=== PATIENT | female | born 1995 | race Caucasian/White ===

== ENCOUNTER 2017-10-19 20:19 | Emergency (ER) | payer BC ==
[2017-10-19] MEDS ORDERED: Ondansetron 4 MG/2 ML SDV IVPUSH ONE (20:53)
[2017-10-19] MEDS ORDERED: Acetaminophen 500 MG Tab PO ONE (20:53)
[2017-10-19] MEDS ORDERED: Sodium Chloride 0.9% 1,000 ML IV ONE (20:53)
--- NOTE | 2017-10-19 20:57 | EDM.PDOC ---
ED HPI GENERAL MEDICAL PROBLEM - General Chief Complaint: Headache Stated Complaint: MIGRAINE Time Seen by Provider: 10/19/17 20:37 - History of Present Illness INITIAL COMMENTS - FREE TEXT/NARRATIVE: HISTORY AND PHYSICAL: History of present illness: Patient is a 21-year-old female currently who presents with concern of headache patient has had headaches in the past she feels this may be a migraine there is a family history of migraines patient does not carry a formal diagnosis has been no trauma been mild nausea equivocal photophobia no other neurological signs or symptoms Review of systems: As per history of present illness and below otherwise all systems reviewed and negative. Past medical history: As per history of present illness and as reviewed below otherwise noncontributory. Surgical history: As per history of present illness and as reviewed below otherwise noncontributory. Social history: No reported history of drug or alcohol abuse. Family history: As per history of present illness and as reviewed below otherwise noncontributory. Physical exam: HEENT: Atraumatic, normocephalic, pupils reactive, negative for conjunctival pallor or scleral icterus, mucous membranes moist, throat clear, neck supple, nontender, trachea midline. Lungs: Clear to auscultation, breath sounds equal bilaterally, chest nontender. Heart: S1S2, regular, negative for clicks, rubs, or JVD. Abdomen: Soft, nondistended, nontender. Negative for masses or hepatosplenomegaly. Negative for costovertebral tenderness. Pelvis: Stable nontender. Genitourinary: Deferred. Rectal: Deferred. Extremities: Atraumatic, negative for cords or calf pain. Neurovascular unremarkable. Neuro: Awake, alert, oriented. Cranial nerves II through XII unremarkable. Cerebellum unremarkable. Motor and sensory unremarkable throughout. Exam nonfocal. Diagnostics: None Therapeutics: Normal saline 1 L bolus Toradol 1 g by mouth Zofran 4 mg IV Impression: #1 cephalgia #2 Definitive disposition and diagnosis as appropriate pending reevaluation and review of above. headache Pain Score (Numeric/FACES): 9 - Related Data Allergies Allergy/AdvReac Type Severity Reaction Status Date / Time amoxicillin [From Augmentin] Allergy Airway Verified 10/19/17 20:32 Tightness clavulanic acid Allergy Airway Verified 10/19/17 20:32 [From Augmentin] Tightness Home Meds: Home Meds Acetaminophen [Tylenol] 325 mg PO Q4H PRN 10/19/17 [History] Docusate Sodium [Colace] 100 mg PO 10/19/17 [History] Metoclopramide HCl 10 mg PO DAILY 10/19/17 [History] Vit No.130/Iron/FA [ Vitamins] 1 each PO 10/19/17 [History] Past Medical History - Past Health History Medical/Surgical History: Denies Medical/Surgical History HEENT History: Reports: None Cardiovascular History: Reports: None Respiratory History: Reports: None Gastrointestinal History: Reports: None Genitourinary History: Reports: None 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: Musculoskeletal History: Reports: Other (See Below) Other Musculoskeletal History: spinal stenosis Neurological History: Reports: None Psychiatric History: Reports: None Endocrine/Metabolic History: Reports: None Dermatologic History: Reports: None - Infectious Disease History Infectious Disease History: Reports: None - Past Surgical History Cardiovascular Surgical History: Reports: None Female Surgical History: Reports: None Social & Family History - Family History Family Medical History: Noncontributory - Tobacco Use Smoking Status *Q: Never Smoker - Recreational Drug Use Recreational Drug Use: No ED ROS GENERAL - Review of Systems Review Of Systems: ROS reveals no pertinent complaints other than HPI. ED EXAM, GENERAL - Physical Exam Exam: See Below (See dictation) Course - Vital Signs Last Recorded V/S: Last Vital Signs Temp 36.7 C 10/19/17 20:35 Pulse 91 10/19/17 20:35 Resp 14 10/19/17 20:35 BP 134/72 10/19/17 20:35 Pulse Ox 98 10/19/17 20:35 - Orders/Labs/Meds Orders: Active Orders 24 hr Category Date Time Status Sodium Chloride 0.9% [Normal Saline] 1,000 ml Med 10/19/17 20:53 Active IV .BOLUS Medication Orders Sodium Chloride (Normal Saline) 1,000 mls @ 999 mls/hr IV .BOLUS ONE Stop: 10/19/17 21:53 Last Admin: 10/19/17 21:00 Dose: 999 mls/hr Meds: Medications Generic Name Dose Route Start Last Admin Trade Name Freq PRN Reason Stop Dose Admin Sodium Chloride 1,000 mls @ 999 mls/hr 10/19/17 20:53 10/19/17 21:00 Normal Saline IV 10/19/17 21:53 999 mls/hr .BOLUS ONE Administration Discontinued Medications Generic Name Dose Route Start Last Admin Trade Name Roberto PRN Reason Stop Dose Admin Acetaminophen 1,000 mg 10/19/17 20:53 10/19/17 21:08 Tylenol Extra Strength PO 10/19/17 20:54 1,000 mg ONETIME ONE Administration Diphenhydramine HCl 50 mg 10/19/17 21:30 10/19/17 21:39 Benadryl IVPUSH 10/19/17 21:31 50 mg ONETIME ONE Administration Metoclopramide HCl 10 mg 10/19/17 21:30 10/19/17 21:38 Reglan IV 10/19/17 21:31 10 mg ONETIME ONE Administration Ondansetron HCl 4 mg 10/19/17 20:53 10/19/17 21:08 Zofran IVPUSH 10/19/17 20:54 4 mg ONETIME ONE Administration Departure - Departure Time of Disposition: 21:53 Disposition: Home, Self-Care 01 Condition: Good Clinical Impression: , Cephalgia - Discharge Information Referrals: Hunter Hassan MD [Primary Care Provider] - Forms: ED Department Discharge Additional Instructions: The following information is given to patients seen in the emergency department who are being discharged to home. This information is to outline your options for follow-up care. We provide all patients seen in our emergency department with a follow-up referral. The need for follow-up, as well as the timing and circumstances, are variable depending upon the specifics of your emergency department visit. If you don't have a primary care physician on staff, we will provide you with a referral. We always advise you to contact your personal physician following an emergency department visit to inform them of the circumstance of the visit and for follow-up with them and/or the need for any referrals to a consulting specialist. The emergency department will also refer you to a specialist when appropriate. This referral assures that you have the opportunity for followup care with a specialist. All of these measure are taken in an effort to provide you with optimal care, which includes your followup. Under all circumstances we always encourage you to contact your private physician who remains a resource for coordinating your care. When calling for followup care, please make the office aware that this follow-up is from your recent emergency room visit. If for any reason you are refused follow-up, please contact the [facility] emergency department at and asked to speak to the emergency department charge nurse. 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
[2017-10-19] MEDS ORDERED: diphenhydrAMINE 50 MG/ML SDV IVPUSH ONE (21:30)
[2017-10-19] MEDS ORDERED: Metoclopramide 10 MG/2 ML SDV IV ONE (21:30)
== END 2017-10-19 22:22 | disposition home or self-care (01) ==
LOC: MW.ED 20:19
DX: O99.89 Other specified diseases and conditions complicating pregnancy, childbirth and the puerperium (principal); R51 Headache; Z88.1 Allergy status to other antibiotic agents; Z79.899 Other long term (current) drug therapy; Z3A.15 15 weeks gestation of pregnancy
CPT/HCPCS: 96361; 96374; 96375; 99283; A9270; J1200; J2405; J2765; J7040

== ENCOUNTER 2018-01-31 16:48 | Emergency (ER) | payer OTHER, BC ==
--- NOTE | 2018-01-31 17:19 | EDM.PDOC ---
ED HPI GENERAL MEDICAL PROBLEM - General Chief Complaint: ENT Problem Stated Complaint: PT HAS EAR INFECTION AND SORE THROAT Time Seen by Provider: 01/31/18 16:52 Source of Information: Reports: Patient History Limitations: Reports: No Limitations - History of Present Illness INITIAL COMMENTS - FREE TEXT/NARRATIVE: HISTORY AND PHYSICAL: History of present illness: Angela is a 22-year-old female, 32-weeks , here with complaint of sore throat and ear pain 3 days. She reports having a fever over the weekend, she's been taking Tylenol for this. She states she vomited once today. Denies any abdominal pain, pelvic pain, dysuria, vaginal discharge, vaginal bleeding.] Review of systems: As per history of present illness and below otherwise all systems reviewed and negative. Past medical history: As per history of present illness and as reviewed below otherwise noncontributory. Surgical history: Tonsillectomy Social history: No reported history of drug or alcohol abuse. Family history: As per history of present illness and as reviewed below otherwise noncontributory. Physical exam: HEENT: Atraumatic, normocephalic, pupils reactive, negative for conjunctival pallor or scleral icterus, mucous membranes moist, throat clear, neck supple, nontender, trachea midline. Lungs: Clear to auscultation, breath sounds equal bilaterally, chest nontender. Heart: S1S2, regular,no murmurs or extra heart sounds Abdomen: Obstetric. Nontender. Negative for masses or hepatosplenomegaly. Negative for costovertebral tenderness. Pelvis: Stable nontender. Genitourinary: Deferred. Rectal: Deferred. Extremities: Atraumatic. Neurovascular unremarkable. Neuro: Awake, alert, oriented. Cranial nerves II through XII unremarkable. Exam nonfocal. Notes: Diagnostics: [Rapid strep UA] Therapeutics: [Macrobid] Impression: [UTI Pharyngitis] Plan: [1. Take antibiotic as directed 2. Drink plenty of fluids ad take Tylenol as needed for pain and instructed 3. Follow-up with OB 4. Return to ED as needed as discussed] Definitive disposition and diagnosis as appropriate pending reevaluation and review of above. throat Pain Score (Numeric/FACES): 5 - Related Data Allergies Allergy/AdvReac Type Severity Reaction Status Date / Time amoxicillin [From Augmentin] Allergy Rash Verified 01/31/18 17:06 clavulanic acid Allergy Rash Verified 01/31/18 17:06 [From Augmentin] Home Meds: Home Meds Acetaminophen [Tylenol] 325 mg PO Q4H PRN 10/19/17 [History] Vit No.130/Iron/FA [ Vitamins] 1 each PO DAILY 10/19/17 [ History] Biotin 100 mg PO DAILY 01/04/18 [History] Ranitidine [Zantac] 75 mg PO DAILY PRN 01/04/18 [History] Docusate Sodium [Colace] 50 mg PO DAILY 01/31/18 [History] Past Medical History - Past Health History Medical/Surgical History: Denies Medical/Surgical History HEENT History: Reports: None Cardiovascular History: Reports: None Respiratory History: Reports: None Gastrointestinal History: Reports: None Genitourinary History: Reports: None [employer]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: Musculoskeletal History: Reports: Other (See Below) Other Musculoskeletal History: spinal stenosis Neurological History: Reports: None Psychiatric History: Reports: None Endocrine/Metabolic History: Reports: None Dermatologic History: Reports: None - Infectious Disease History Infectious Disease History: Reports: None - Past Surgical History HEENT Surgical History: Reports: Adenoidectomy, Tonsillectomy Cardiovascular Surgical History: Reports: None Female Surgical History: Reports: None Social & Family History - Family History Family Medical History: Noncontributory - Tobacco Use Smoking Status *Q: Never Smoker - Caffeine Use Caffeine Use: Reports: Coffee - Recreational Drug Use Recreational Drug Use: No ED ROS ENT - Review of Systems Review Of Systems: ROS reveals no pertinent complaints other than HPI. ED EXAM, ENT - Physical Exam Exam: See Below (See dictation) Course - Vital Signs Last Recorded V/S: Last Vital Signs Temp 37.6 C 01/31/18 17:03 Pulse 111 H 01/31/18 17:03 Resp 20 01/31/18 17:03 BP 135/75 01/31/18 17:03 Pulse Ox 97 01/31/18 17:03 - Orders/Labs/Meds Orders: Active Orders 24 hr Category Date Time Status CULTURE STREP A CONFIRMATION [RM] Stat Lab 01/31/18 17:10 Results STREP SCRN A RAPID W CULT CONF [RM] Stat Lab 01/31/18 17:10 Ordered UA W/MICROSCOPIC [URIN] Stat Lab 01/31/18 17:10 Ordered Labs: Laboratory Tests 01/31/18 Range/Units 17:10 Urine Color YELLOW Urine Appearance SLT CLOUDY Urine pH 6.0 (5.0-8.0) Ur Specific [place] 1.020 (1.001-1.035) Urine Protein NEGATIVE (NEGATIVE) mg/dL Urine Glucose (UA) NEGATIVE (NEGATIVE) mg/dL Urine Ketones NEGATIVE (NEGATIVE) mg/dL Urine Occult Blood NEGATIVE (NEGATIVE) Urine Nitrite NEGATIVE (NEGATIVE) Urine Bilirubin NEGATIVE (NEGATIVE) Urine Urobilinogen 0.2 (<2.0) EU/dL Ur Leukocyte Esterase SMALL (NEGATIVE) Urine RBC 0-3 (0-2/HPF) Urine WBC 7-10 (0-5/HPF) Ur Epithelial Cells FEW (NONE-FEW) Urine Bacteria 1+ H (NEGATIVE) Departure - Departure Time of Disposition: 18:18 Disposition: Home, Self-Care 01 Condition: Good Clinical Impression: UTI (urinary tract infection) - Discharge Information Instructions: Urinary Tract Infection, Adult, [id number] Referrals: PCP,None [Primary Care Provider] - Forms: ED Department Discharge Additional Instructions: The following information is given to patients seen in the emergency department who are being discharged to home. This information is to outline your options for follow-up care. We provide all patients seen in our emergency department with a follow-up referral. The need for follow-up, as well as the timing and circumstances, are variable depending upon the specifics of your emergency department visit. If you don't have a primary care physician on staff, we will provide you with a referral. We always advise you to contact your personal physician following an emergency department visit to inform them of the circumstance of the visit and for follow-up with them and/or the need for any referrals to a consulting specialist. The emergency department will also refer you to a specialist when appropriate. This referral assures that you have the opportunity for follow-up care with a specialist. All of these measure are taken in an effort to provide you with optimal care, which includes your follow-up. Under all circumstances we always encourage you to contact your private physician who remains a resource for coordinating your care. When calling for follow-up care, please make the office aware that this follow-up is from your recent emergency room visit. If for any reason you are refused follow-up, please contact the [facility] Emergency Department at and asked to speak to the emergency department charge nurse. 1. Take antibiotic as directed 2. Drink plenty of fluids ad take Tylenol as needed for pain and instructed 3. Follow-up with OB 4. Return to ED as needed as discussed - My Orders Last 24 Hours: My Active Orders 01/31/18 17:10 CULTURE STREP A CONFIRMATION [RM] Stat STREP SCRN A RAPID W CULT CONF [RM] Stat UA W/MICROSCOPIC [URIN] Stat - Assessment/Plan Last 24 Hours: My Active Orders 01/31/18 17:10 CULTURE STREP A CONFIRMATION [RM] Stat STREP SCRN A RAPID W CULT CONF [RM] Stat UA W/MICROSCOPIC [URIN] Stat
== END 2018-01-31 18:44 | disposition home or self-care (01) ==
LOC: MW.ED 16:48
DX: O99.513 Diseases of the respiratory system complicating pregnancy, third trimester (principal); J02.9 Acute pharyngitis, unspecified; O23.43 Unspecified infection of urinary tract in pregnancy, third trimester; Z88.1 Allergy status to other antibiotic agents; Z79.899 Other long term (current) drug therapy; Z3A.32 32 weeks gestation of pregnancy
CPT/HCPCS: 81001; 87081; 87086; 87880; 99283

== ENCOUNTER 2018-04-06 18:56 | Inpatient (IN) | payer OTHER, BC ==
[2018-04-06] MEDS ORDERED: Sodium Chloride 0.9% 10 ML Syringe FLUSH PRN (19:15)
[2018-04-06] MEDS ORDERED: Butorphanol 1 MG/ML SDV IVPUSH PRN (19:15)
[2018-04-06] MEDS ORDERED: Sodium Chloride 0.9% 2.5 ML Syringe FLUSH PRN (19:15)
[2018-04-06] MEDS ORDERED: Carboprost Tromethamine 250 MCG/1 ML Amp IM PRN (19:15)
[2018-04-06] MEDS ORDERED: Lidocaine 1% 50 ML MDV INJECT PRN (19:15)
[2018-04-06] MEDS ORDERED: Oxytocin/0.9 % Sodium Chloride 30 UNIT/500 ML BAG IV SCH ×2 (19:15→19:30)
[2018-04-06] MEDS ORDERED: Methylergonovine 0.2 MG/1 ML Amp IM PRN (19:15)
[2018-04-06] MEDS ORDERED: Water For Irrigation,Sterile 1,000 ML Container IRR PRN (19:15)
[2018-04-06] MEDS ORDERED: Nalbuphine 10 MG/1 ML Vial IVPUSH PRN (19:15)
[2018-04-06] MEDS ORDERED: Tranexamic Acid 1,000 MG in Sodium Chloride 0.9% 100 ML IV PRN (19:15)
[2018-04-06] MEDS ORDERED: Misoprostol 200 MCG Tab PO PRN (19:15)
[2018-04-06] MEDS ORDERED: Terbutaline 1 MG/ML SDV SUBCUT PRN (19:18)
[2018-04-06] MEDS ORDERED: Misoprostol 25 MCG (1/4 of 100 MCG) Tab VAG PRN (19:18)
[2018-04-06] MEDS ORDERED: Misoprostol 25 MCG (1/4 of 100 MCG) Tab VAG ONE (19:30)
[2018-04-06] MEDS ORDERED: Misoprostol 25 MCG (1/4 of 100 MCG) Tab VAG SCH (19:30)
[2018-04-07] MEDS: Lactated Ringers 1,000 ML IV SCH ×3 (00:19→12:14)
[2018-04-07] MEDS ORDERED: Ropivacaine 0.2% 2 MG/ML 20 ML SDV ONE (00:35)
[2018-04-07] MEDS ORDERED: Ropivacaine HCl/PF 100 ML ONE ×2 (00:35→09:47)
--- NOTE | 2018-04-07 01:23 | PCM.PREANE ---
Preanesthetic Assessment - Procedure Proposed Procedure: Labor Epidural - Anesthesia/Transfusion/Family Hx Anesthesia History: Prior Anesthesia Without Reaction Family History of Anesthesia Reaction: No Transfusion History: No Prior Transfusion(s) Intubation History: Unknown - Review of Systems General: No Symptoms Pulmonary: No Symptoms Cardiovascular: No Symptoms Gastrointestinal: No Symptoms Neurological: No Symptoms Other: Reports: None - Physical Assessment NPO Status Date: 04/07/18 NPO Status Time: 00:00 (sips/chips) Pulse: 86 Blood Pressure: 140/85 Height: 5 ft 9 in Weight: 179 lb ASA Class: 2 Mental Status: Alert & Oriented x3 Airway Class: Mallampati = 2 Dentition: Reports: Normal Dentition Thyro-Mental Finger Breadths: 3 Mouth Opening Finger Breadths: 3 ROM/Head Extension: Full Lungs: Clear to Auscultation, Normal Respiratory Effort Cardiovascular: Regular Rate, Regular Rhythm - Lab Values: Laboratory Last Values WBC 15.51 K/uL (4.0-11.0) H 04/06/18 19:37 RBC 4.41 M/uL (4.30-5.90) 04/06/18 19:37 Hgb 14.6 g/dL (12.0-16.0) 04/06/18 19:37 Hct 40.7 % (36.0-46.0) 04/06/18 19:37 MCV 92.3 fL (80.0-98.0) 04/06/18 19:37 MCH 33.1 pg (27.0-32.0) H 04/06/18 19:37 MCHC 35.9 g/dL (31.0-37.0) 04/06/18 19:37 RDW Std Deviation 43.7 fl (28.0-62.0) 04/06/18 19:37 RDW Coeff of Brayden 13 % (11.0-15.0) 04/06/18 19:37 Plt Count 220 K/uL (150-400) 04/06/18 19:37 MPV 10.50 fL (7.40-12.00) 04/06/18 19:37 Nucleated RBC % 0.0 /100WBC 04/06/18 19:37 Nucleated RBCs # 0 K/uL 04/06/18 19:37 Blood Type A POSITIVE 04/06/18 19:37 Antibody Screen NEGATIVE 04/06/18 19:37 - Allergies Allergies/Adverse Reactions: Allergies Allergy/AdvReac Type Severity Reaction Status Date / Time amoxicillin [From Augmentin] Allergy Rash Verified 01/31/18 17:06 clavulanic acid Allergy Rash Verified 01/31/18 17:06 [From Augmentin] - Blood Blood Available: No Product(s) Available: None - Anesthesia Plan Free Text/Narrative:: Labor Epidural - discussed waiting as pt is only having mild cramping, a prime and only dilated to 2cm. Pt wants to proceed with epidural at this time, but is willing to start on a reduced dose until in active labor. 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) Musculoskeletal History: Reports: Other (See Below) Other Musculoskeletal History: spinal stenosis - epidural steroids L4-S1 in 2016 - helped after one treatment Neurological History: Reports: None Psychiatric History: Reports: None Endocrine/Metabolic History: Reports: None Dermatologic History: Reports: None - Infectious Disease History Infectious Disease History: Reports: None - Past Surgical History HEENT Surgical History: Reports: Adenoidectomy, Tonsillectomy Cardiovascular Surgical History: Reports: None Female Surgical History: Reports: None - SUBSTANCE USE Smoking Status *Q: Never Smoker Second Hand Smoke Exposure: No Recreational Drug Use History: No - HOME MEDS Home Medications: Home Meds Acetaminophen [Tylenol] 325 mg PO Q4H PRN 10/19/17 [History] Vit No.130/Iron/FA [ Vitamins] 1 each PO DAILY 10/19/17 [ History] Biotin 100 mg PO DAILY 01/04/18 [History] Ranitidine [Zantac] 75 mg PO DAILY PRN 01/04/18 [History] Docusate Sodium [Colace] 50 mg PO DAILY 01/31/18 [History] - CURRENT (IN HOUSE) MEDS Current Meds: Current Medications Butorphanol Tartrate (Stadol) 1 mg IVPUSH Q1H PRN PRN Reason: Pain Carboprost Tromethamine (Hemabate Ds) 250 mcg IM ASDIRECTED PRN PRN Reason: Post Hemorrhage Lactated Ringer's (Ringers, Lactated) 1,000 mls @ 150 mls/hr IV ASDIRECTED RICK Last Admin: 04/07/18 00:19 Dose: 150 mls/hr Oxytocin/Sodium Chloride (Oxytocin 30 Unit/500 Ml-Ns) 30 unit in 500 mls @ 999 mls/hr IV TITRATE RICK Tranexamic Acid 1,000 mg/ (Sodium Chloride) 110 mls @ 660 mls/hr IV ONETIME PRN PRN Reason: Bleeding Oxytocin/Sodium Chloride (Oxytocin 30 Unit/500 Ml-Ns) 30 unit in 500 mls @ 2 mls/hr IV TITRATE [facility]; Protocol Last Admin: 04/07/18 01:15 Dose: 2 munits/min, 2 mls/hr Lidocaine HCl (Xylocaine 1%) 50 ml INJECT .ONCE PRN PRN Reason: Laceration repair Methylergonovine Maleate (Methergine) 0.2 mg IM ASDIRECTED PRN PRN Reason: Post Hemorrhage Misoprostol (Cytotec) 200 mcg PO .ONCE PRN PRN Reason: Post Hemorrhage Misoprostol (Cytotec) 25 mcg VAG Q4H PRN PRN Reason: Cervical Ripening Nalbuphine HCl (Nubain) 10 mg IVPUSH Q1H PRN PRN Reason: Pain (severe 7-10) Sodium Chloride (Saline Flush) 10 ml FLUSH ASDIRECTED PRN PRN Reason: Keep Vein Open Sodium Chloride (Saline Flush) 2.5 ml FLUSH ASDIRECTED PRN PRN Reason: Keep Vein Open Sterile Water (Sterile Water For Irrigation) 1,000 ml IRR ASDIRECTED PRN PRN Reason: delivery Terbutaline Sulfate (Brethine) 0.25 mg SUBCUT ASDIRECTED PRN PRN Reason: Tacysystole Discontinued Medications Ropivacaine (Naropin 0.2%) Confirm Administered Dose 100 mls @ as directed .ROUTE .STK-MED ONE Stop: 04/07/18 00:36 Misoprostol (Cytotec) 25 mcg VAG .ONCE RICK Misoprostol (Cytotec) 25 mcg VAG ONETIME ONE Stop: 04/06/18 19:31 Ropivacaine (Naropin 0.2%) Confirm Administered Dose 20 ml .ROUTE .STK-MED ONE Stop: 04/07/18 00:36
[2018-04-07] MEDS ORDERED: Nalbuphine 10 MG/ML 10 ML MDV IVPUSH PRN (07:30)
[2018-04-07] MEDS ORDERED: Ondansetron 4 MG/2 ML SDV IVPUSH PRN (09:17)
[2018-04-07] MEDS ORDERED: Bupivacaine 0.5% 10 ML SDV ONE (10:54)
[2018-04-07] MEDS ORDERED: Benzocaine/Menthol 20%-0.5% Spray 78 GM Cannister TOP PRN (13:42)
[2018-04-07] MEDS ORDERED: Ibuprofen 400 MG Tab PO PRN (13:42)
[2018-04-07] MEDS ORDERED: Docusate Sodium 100 MG Cap PO PRN (13:42)
[2018-04-07] MEDS ORDERED: oxyCODONE 5 MG Tab PO PRN (13:42)
[2018-04-07] MEDS ORDERED: Lanolin 100% Cream 7 GM Tube TOP PRN (13:42)
[2018-04-07] MEDS ORDERED: Witch Hazel Medicated Pads 40/Jar TOP PRN (13:42)
[2018-04-07] MEDS ORDERED: Ibuprofen 800 MG Tab PO PRN (13:42)
[2018-04-07] MEDS ORDERED: Acetaminophen 500 MG Tab PO PRN ×2 (13:42)
[2018-04-07] MEDS ORDERED: Bisacodyl 10 MG Supp RECTAL PRN (13:42)
[2018-04-07] MEDS ORDERED: Aluminum Hydroxide/Magnesium Hydroxide/Simethicone Susp 30 ML Cup PO PRN (13:42)
--- NOTE | 2018-04-07 15:06 | OR ---
SURGEON: Tenisha Babcock M.D. DATE OF PROCEDURE: 04/07/2018 PREOPERATIVE DIAGNOSES: 1. 39 and 2 week intrauterine . 2. Gestational proteinuria. POSTOPERATIVE DIAGNOSES: 1. 39 and 2 week intrauterine . 2. Gestational proteinuria. PROCEDURES: Spontaneous vaginal delivery, bilateral periurethral laceration repair. ESTIMATED BLOOD LOSS: 300 mL. ANESTHESIA: Epidural. COMPLICATIONS: None. FINDINGS: Term female. score 9 at 1 minute and 9 at 5 minute. Weight is pending. Spontaneous delivery, intact placenta, 3-vessel cord. DISPOSITION: to nursery, mom in LDRP, stable. PROCEDURE IN DETAIL: The patient is a 22-year-old G1, P0, at 39 and 2 weeks gestational age, who presents on the evening of 04/06/2018 for scheduled induction of labor due to gestational proteinuria at term gestation. The patient was initiated on Cytotec induction, responded nicely to this, began her regular contraction pattern and then was transitioned to Pitocin. She did have a few late appearing decelerations with this transition; however, with positioning changes and decreasing in dosage, these did stabilize. The patient underwent regional anesthesia in form of epidural on the morning of 04/07/2018, became more comfortable and underwent amniotomy with clear fluid. She is group B strep negative. Shortly after 9:00, the patient is found to be 3 cm, 80% effaced, -2 station. An IUPC was placed. Contraction pattern found to be adequate. She continued to progress and progressed much more rapidly thereafter. Shortly before 1:00 p.m., the patient was found to be complete 100% effaced, +2 station, began pushing efforts and pushed readily within the next few minutes was +3 station. I was called for delivery. Upon my arrival, the patient was placed in modified dorsolithotomy position, was prepped and draped in the usual aseptic manner. Continued with pushing efforts and was able to deliver infant's head atraumatically, spontaneously followed by anterior shoulder, posterior shoulder, and remaining body without difficulty. The infant's oropharynx and nares bulb suctioned. Cord clamped x2 and cut. Infant was handed off to her mother with attending nursing staff at her side. Cord arterial, cord venous, cord blood sampling were obtained. Light pressure was applied while the placenta was delivered spontaneously intact. Vigorous fundal uterine massage was then applied while 30 units Pitocin was delivered in 5 mL of fluid upon inspection of cervix, vaginal sidewalls, and perineum. There was found to be bilateral first-degree periurethral lacerations repaired using 3-0 Vicryl in continuous running locked fashion. Hemostasis thereafter evident. Sponge count and needle count were correct. Uterus remained firm. Hemostasis evident. The patient remained in LDRP, infant to nursery. LEE / LIZETH /[id number] ANDREAS
--- NOTE | 2018-04-08 07:23 | PCM48HPAN ---
Post Anesthesia Note - EVALUATION WITHIN 48HRS OF ANESTHETIC Vital Signs in Normal Range: Yes Patient Participated in Evaluation: Yes Respiratory Function Stable: Yes Airway Patent: Yes Cardiovascular Function Stable: Yes Hydration Status Stable: Yes Pain Control Satisfactory: Yes Nausea and Vomiting Control Satisfactory: Yes Mental Status Recovered: Yes Pulse Rate: 86 Resp Rate: 16 Blood Pressure: 140/85 - COMMENTS/OBSERVATIONS Free Text/Narrative:: Denies any complaints at this time. Sitting up in bed with baby.
--- NOTE | 2018-04-08 08:57 | PCM.PNPP ---
- General Info Date of Service: 04/08/18 Functional Status: Reports: Pain Controlled, Tolerating Diet, Ambulating, Urinating - Review of Systems General: Denies: Fever, Weakness Pulmonary: Denies: Shortness of Breath Cardiovascular: Denies: Chest Pain, Palpitations, Lightheadedness Gastrointestinal: Denies: Abdominal Pain, Nausea, Vomiting Genitourinary: Denies: Flank Pain Skin: Reports: No Symptoms Psychiatric: Denies: Confusion, Mood Lability - General Info Date of Service: 04/08/18 - Patient Data Vital Signs - Most Recent: Last Vital Signs Temp 37.1 C 04/08/18 04:54 Pulse 86 04/08/18 07:22 Resp 16 04/08/18 07:22 BP 140/85 04/08/18 07:22 Pulse Ox 99 04/08/18 04:54 Weight - Most Recent: 81.193 kg Lab Results - Last 24 Hours: Laboratory Results - last 24 hr 04/07/18 04/08/18 Range/Units 13:15 05:30 Hgb 13.7 (12.0-16.0) g/dL Hct 38.6 (36.0-46.0) % Cord ABG pH 7.328 (7.18-7.38) Cord ABG Base Excess -2 (-10--2) Cord VBG pH 7.343 (7.25-7.45) Cord VBG Base Excess -3 (-10--2) Med Orders - Current: Current Medications Acetaminophen (Tylenol Extra Strength) 500 mg PO Q4H PRN PRN Reason: Pain Acetaminophen (Tylenol Extra Strength) 1,000 mg PO Q4H PRN PRN Reason: Pain Al Hydroxide/Mg Hydroxide (Mag-Al Plus) 30 ml PO Q8H PRN PRN Reason: Heartburn Benzocaine/Menthol (Dermoplast Pain Relief 20%-0.5% [place]) 78 gm TOP ASDIRECTED PRN PRN Reason: Perineal Comfort Measure Last Admin: 04/07/18 16:02 Dose: 1 can Bisacodyl (Dulcolax) 10 mg RECTAL .ONCE PRN PRN Reason: Constipation Carboprost Tromethamine (Hemabate Ds) 250 mcg IM ASDIRECTED PRN PRN Reason: Post Hemorrhage Docusate Sodium (Colace) 100 mg PO BID PRN PRN Reason: Constipation Emollient Ointment (Lansinoh Hpa) 0 gm TOP ASDIRECTED PRN PRN Reason: Sore Nipples Lactated Ringer's (Ringers, Lactated) 1,000 mls @ 150 mls/hr IV ASDIRECTED RICK Last Admin: 04/07/18 12:14 Dose: 150 mls/hr Oxytocin/Sodium Chloride (Oxytocin 30 Unit/500 Ml-Ns) 30 unit in 500 mls @ 999 mls/hr IV TITRATE RICK Tranexamic Acid 1,000 mg/ (Sodium Chloride) 110 mls @ 660 mls/hr IV ONETIME PRN PRN Reason: Bleeding Oxytocin/Sodium Chloride (Oxytocin 30 Unit/500 Ml-Ns) 30 unit in 500 mls @ 2 mls/hr IV TITRATE RICK; Protocol Last Titration: 04/07/18 08:51 Dose: 8 munits/min, 8 mls/hr Ibuprofen (Motrin) 400 mg PO Q4H PRN PRN Reason: Pain Ibuprofen (Motrin) 800 mg PO Q6H PRN PRN Reason: Pain Last Admin: 04/07/18 15:59 Dose: 800 mg Lidocaine HCl (Xylocaine 1%) 50 ml INJECT .ONCE PRN PRN Reason: Laceration repair Methylergonovine Maleate (Methergine) 0.2 mg IM ASDIRECTED PRN PRN Reason: Post Hemorrhage Misoprostol (Cytotec) 200 mcg PO .ONCE PRN PRN Reason: Post Hemorrhage Ondansetron HCl (Zofran) 4 mg IVPUSH Q4H PRN PRN Reason: Nausea Last Admin: 04/07/18 09:58 Dose: 4 mg Oxycodone HCl (Oxycodone) 5 mg PO Q2H PRN PRN Reason: Pain Sodium Chloride (Saline Flush) 10 ml FLUSH ASDIRECTED PRN PRN Reason: Keep Vein Open Sodium Chloride (Saline Flush) 2.5 ml FLUSH ASDIRECTED PRN PRN Reason: Keep Vein Open Sterile Water (Sterile Water For Irrigation) 1,000 ml IRR ASDIRECTED PRN PRN Reason: delivery Witch Devora (Tucks) 1 pad TOP ASDIRECTED PRN PRN Reason: comfort care Last Admin: 04/07/18 16:01 Dose: 1 jar Discontinued Medications Bupivacaine HCl (Sensorcaine-Mpf 0.5%) Confirm Administered Dose 10 ml .ROUTE .STK-MED ONE Stop: 04/07/18 10:55 Last Admin: 04/08/18 07:13 Dose: Not Given Butorphanol Tartrate (Stadol) 1 mg IVPUSH Q1H PRN PRN Reason: Pain Ropivacaine (Naropin 0.2%) Confirm Administered Dose 100 mls @ as directed .ROUTE .STK-MED ONE Stop: 04/07/18 00:36 Last Admin: 04/08/18 07:13 Dose: Not Given Ropivacaine (Naropin 0.2%) Confirm Administered Dose 100 mls @ as directed .ROUTE .STK-MED ONE Stop: 04/07/18 09:48 Last Admin: 04/08/18 07:13 Dose: Not Given Fentanyl/Bupivacaine HCl (Srbvvlui-Ftolo-Bb 2 Mcg/Ml-0.125%) Confirm Administered Dose 100 mls @ as directed EP .STK-MED ONE Stop: 04/07/18 11:40 Last Admin: 04/08/18 07:14 Dose: Not Given Misoprostol (Cytotec) 25 mcg VAG .ONCE RICK Misoprostol (Cytotec) 25 mcg VAG Q4H PRN PRN Reason: Cervical Ripening Misoprostol (Cytotec) 25 mcg VAG ONETIME ONE Stop: 04/06/18 19:31 Nalbuphine HCl (Nubain) 10 mg IVPUSH Q1H PRN PRN Reason: Pain (severe 7-10) Nalbuphine HCl (Nubain) 10 mg IVPUSH Q1H PRN PRN Reason: Pain (severe 7-10) Ropivacaine (Naropin 0.2%) Confirm Administered Dose 20 ml .ROUTE .STK-MED ONE Stop: 04/07/18 00:36 Last Admin: 04/08/18 07:13 Dose: Not Given Terbutaline Sulfate (Brethine) 0.25 mg SUBCUT ASDIRECTED PRN PRN Reason: Tacysystole - Infant Interaction Infant Disposition, : in Room with Family Feeding: Breastfed ; Nursed Well Support Person: - Recovery Exam Fundal Tone: Firm Fundal Level: At Umbilicus Fundal Placement: Midline Lochia Amount: Scant Lochia Color: Rubra/Red Perineum Description: Edematous Bladder Status: Voiding Urinary Elimination: Voided - Exam General: Alert, Oriented Lungs: Normal Respiratory Effort Cardiovascular: Regular Rate, Regular Rhythm GI/Abdominal Exam: Soft, Non-Tender, No Distention Extremities: Pedal Edema (trace). No: Cameron's Sign Skin: Warm, Dry, Intact Psy/Mental Status: Alert, Normal Affect - Problem List & Annotations (1) Vaginal delivery SNOMED Code(s): 560637834 Code(s): O80 - ENCOUNTER FOR FULL-TERM UNCOMPLICATED DELIVERY Status: Acute Current Visit: Yes - Problem List Review Problem List Initiated/Reviewed/Updated: Yes - My Orders Last 24 Hours: My Active Orders 04/07/18 09:17 Ondansetron [Zofran] 4 mg IVPUSH Q4H PRN 04/07/18 13:42 Acetaminophen [Tylenol Extra Strength] 1,000 mg PO Q4H PRN Acetaminophen [Tylenol Extra Strength] 500 mg PO Q4H PRN Alum Hydrox/Mag Hydrox/Simeth [Mag-Al Plus] 30 ml PO Q8H PRN Benzocaine/Menthol [Dermoplast Pain Relief 20%-0.5% [place]] 78 gm TOP ASDIRECTED PRN Bisacodyl [Dulcolax] 10 mg RECTAL .ONCE PRN Docusate Sodium [Colace] 100 mg PO BID PRN Ibuprofen [Motrin] 400 mg PO Q4H PRN Ibuprofen [Motrin] 800 mg PO Q6H PRN Lanolin [Lansinoh HPA] See Dose Instructions TOP ASDIRECTED PRN Witch Devora [Tucks] 1 pad TOP ASDIRECTED PRN oxyCODONE 5 mg PO Q2H PRN Breast Pump [WOMSER] Per Unit Routine 04/07/18 13:43 Patient Status [ADT] Routine May Shower [RC] ASDIRECTED Up ad Mari [RC] ASDIRECTED Vital Signs [RC] PER UNIT ROUTINE Assess Lochia [WOMSER] Per Unit Routine Assess Uterine Involution [WOMSER] Per Unit Routine Ice Therapy [OM.PC] Per Unit Routine Perineal Care [OM.PC] Per Unit Routine Peripheral IV Discontinue [OM.PC] Routine Sitz Bath [OM.PC] Per Unit Routine 04/07/18 Dinner Regular Diet [DIET] - Assessment Assessment:: PPD 1 status post Gestational proteinuria - Plan Plan:: Labs remain stable, BP normal this am. She denies headache or ME pain. She is feeling well, going well and would like to go home later today. Discharge instructions reviewed. Follow up at [facility] 6 weeks. Infection and bleeding warnings reviewed. Discharge to home today.
== END 2018-04-08 16:20 | disposition home or self-care (01) | DRG 775 ==
LOC: MW.OBCHECK 18:56 → MW.OB 18:57 → MW.OBCHECK 19:15 → MW.OB 19:15 → OBSVTOIN 04-07 13:15 → MW.OB 04-07 17:00
PROVIDERS: ADMIT Obstetrics & Gynecology; ATTEND Obstetrics & Gynecology
PROC: 10E0XZZ Delivery of Products of Conception, External Approach (ICD-10-PCS; principal; 2018-04-07)
PROC: 3E0P7VZ Introduction of Hormone into Female Reproductive, Via Natural or Artificial Opening (ICD-10-PCS; 2018-04-07)
PROC: 3E033VJ Introduction of Other Hormone into Peripheral Vein, Percutaneous Approach (ICD-10-PCS; 2018-04-07)
PROC: 10907ZC Drainage of Amniotic Fluid, Therapeutic from Products of Conception, Via Natural or Artificial Opening (ICD-10-PCS; 2018-04-07)
PROC: 0HQ9XZZ Repair Perineum Skin, External Approach (ICD-10-PCS; 2018-04-07)
PROC: 10H07YZ Insertion of Other Device into Products of Conception, Via Natural or Artificial Opening (ICD-10-PCS; 2018-04-07)
DX: O12.14 Gestational proteinuria, complicating childbirth (principal); O70.0 First degree perineal laceration during delivery; Z3A.39 39 weeks gestation of pregnancy; Z37.0 Single live birth
CPT/HCPCS: 36415; 51702; 59025; 59409; 82803; 85014; 85018; 85027; 86850; 86900; 86901; A9270-GY; J2405; J2590; J2795; J7120

== ENCOUNTER 2019-02-11 06:47 | Day surgery (SDC) | payer BC, OTHER ==
[~2019-02-11 06:47] MED LIST: Ciprofloxacin in D5W 400 MG in Premix Bag 1 BAG IV SCH; Lactated Ringers 1,000 ML IV SCH
[2019-02-11] MEDS ORDERED: Propofol 200 MG/20 ML SDV ONE (07:11)
[2019-02-11] MEDS ORDERED: fentaNYL 250 MCG/5 ML SDV ONE (07:11)
[2019-02-11] MEDS ORDERED: Midazolam 1 MG/ML 2 ML SDV ONE (07:14)
[2019-02-11] MEDS ORDERED: ceFAZolin 1 GM Vial ONE (07:18)
[2019-02-11] MEDS ORDERED: Bupivacaine 0.5% 30 ML SDV ONE (07:19)
--- NOTE | 2019-02-11 07:44 | PCM.PREANE ---
Preanesthetic Assessment - Anesthesia/Transfusion/Family Hx Anesthesia History: Prior Anesthesia Without Reaction Family History of Anesthesia Reaction: No Transfusion History: No Prior Transfusion(s) Intubation History: Unknown - Review of Systems General: No Symptoms Pulmonary: No Symptoms Cardiovascular: No Symptoms Gastrointestinal: No Symptoms Neurological: No Symptoms Other: Reports: None - Physical Assessment NPO Status Date: 02/10/19 Height: 5 ft 9 in Weight: 73.028 kg ASA Class: 2 Mental Status: Alert & Oriented x3 Airway Class: Mallampati = 1 Dentition: Reports: Normal Dentition ROM/Head Extension: Full Lungs: Clear to Auscultation, Normal Respiratory Effort Cardiovascular: Regular Rate, Regular Rhythm - Lab Values: Laboratory Last Values Urine HCG, Qual NEGATIVE (NEGATIVE) 02/11/19 07:05 - Allergies Allergies/Adverse Reactions: Allergies Allergy/AdvReac Type Severity Reaction Status Date / Time amoxicillin [From Augmentin] Allergy Anaphylactic Verified 02/08/19 09:13 Shock clavulanic acid Allergy Anaphylactic Verified 02/08/19 09:13 [From Augmentin] Shock - Blood Blood Available: No - Anesthesia Plan Pre-Op Medication Ordered: None - Acknowledgements Anesthesia Type Planned: General Anesthesia Pt an Appropriate Candidate for the Planned Anesthesia: Yes Alternatives and Risks of Anesthesia Discussed w Pt/Guardian: Yes Pt/Guardian Understands and Agrees with Anesthesia Plan: Yes PreAnesthesia Questionnaire - Past Health History Medical/Surgical History: Denies Medical/Surgical History HEENT History: Reports: None Cardiovascular History: Reports: None Respiratory History: Reports: None Gastrointestinal History: Reports: None Genitourinary History: Reports: None 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: Musculoskeletal History: Reports: Other (See Below) Other Musculoskeletal History: spinal stenosis - several epidural steroid injection in the past Neurological History: Reports: None Psychiatric History: Reports: None Endocrine/Metabolic History: Reports: None Hematologic History: Reports: None Immunologic History: Reports: None Oncologic (Cancer) History: Reports: None Dermatologic History: Reports: None - Infectious Disease History Infectious Disease History: Reports: Chicken Pox - Past Surgical History Head Surgeries/Procedures: Reports: None HEENT Surgical History: Reports: Adenoidectomy, Myringotomy w Tube(s), Tonsillectomy Cardiovascular Surgical History: Reports: None Respiratory Surgical History: Reports: None GI Surgical History: Reports: None Female Surgical History: Reports: None Endocrine Surgical History: Reports: None Neurological Surgical History: Reports: None Musculoskeletal Surgical History: Reports: None Oncologic Surgical History: Reports: None Dermatological Surgical History: Reports: None - SUBSTANCE USE Smoking Status *Q: Former Smoker Recreational Drug Use History: No - HOME MEDS Home Medications: Home Meds Acetaminophen [Tylenol Extra Strength] 2 tab PO ASDIRECTED PRN 02/08/19 [History ] Ibuprofen [Motrin] 3 - 4 tab PO ASDIRECTED PRN 02/08/19 [History] Metaxalone [Metaxall] 1 tab PO TID PRN 02/08/19 [History] Multivit with Calcium,Iron,Min [One Daily Women's] 1 tab PO DAILY 02/08/19 [ History] Sucralfate [Carafate] 1 gm PO DAILY PRN 02/11/19 [History] - CURRENT (IN HOUSE) MEDS Current Meds: Current Medications Lactated Ringer's (Ringers, Lactated) 1,000 mls @ 125 mls/hr IV ASDIRECTED [facility] Last Admin: 02/11/19 07:40 Dose: 125 mls/hr Discontinued Medications Bupivacaine HCl (Marcaine 0.5%) Confirm Administered Dose 30 ml .ROUTE .STK-MED ONE Stop: 02/11/19 07:20 Cefazolin Sodium (Ancef) Confirm Administered Dose 1 gm .ROUTE .STK-MED ONE Stop: 02/11/19 07:19 Fentanyl (Sublimaze) Confirm Administered Dose 250 mcg .ROUTE .STK-MED ONE Stop: 02/11/19 07:12 Ciprofloxacin/Dextrose 400 mg/ (Premix) 200 mls @ 200 mls/hr IV Q12H [facility] Stop: 02/11/19 06:59 Last Admin: 02/11/19 07:30 Dose: 200 mls/hr Midazolam HCl (Versed 1 Mg/Ml) Confirm Administered Dose 2 mg .ROUTE .STK-MED ONE Stop: 02/11/19 07:15 Propofol (Diprivan 20 Ml) Confirm Administered Dose 200 mg .ROUTE .STK-MED ONE Stop: 02/11/19 07:12
[2019-02-11] MEDS ORDERED: Dexamethasone 4 MG/ML 5 ML MDV ONE (08:16)
[2019-02-11] MEDS ORDERED: Ondansetron 4 MG/2 ML SDV ONE (08:16)
[2019-02-11] MEDS ORDERED: EPINEPHrine 1:10,000 1 MG/10 ML Syringe IVPUSH PRN (08:22)
[2019-02-11] MEDS ORDERED: Naloxone 0.4 MG/ML Syringe IVPUSH PRN (08:22)
[2019-02-11] MEDS ORDERED: Atropine 0.1 MG/ML 10 ML Syringe IVPUSH PRN ×2 (08:22)
[2019-02-11] MEDS ORDERED: 50% Dextrose in Water 50 ML Syringe IVPUSH PRN (08:22)
[2019-02-11] MEDS ORDERED: Ondansetron 4 MG/2 ML SDV IVPUSH PRN (08:53)
[2019-02-11] MEDS ORDERED: Acetaminophen/HYDROcodone 325-5 MG Tab PO PRN (08:53)
[2019-02-11] MEDS ORDERED: Morphine 10 MG/ML Syringe IVPUSH PRN (08:53)
[2019-02-11] MEDS ORDERED: Acetaminophen 1,000 MG in Premix Bag 1 BAG IV ONE (08:56)
[2019-02-11] MEDS ORDERED: Lactated Ringers 1,000 ML IV SCH (09:00)
--- NOTE | 2019-02-11 09:04 | PCM.OPNOTE ---
- General Post-Op/Procedure Note Date of Surgery/Procedure: 02/11/19 Operative Procedure(s): Repair incarcerated ventral hernia Pre Op Diagnosis: Incarcerated ventral hernia Anesthesia Technique: General LMA (ASA II) Primary Surgeon: Daniel Villa Greenhouse Staff: Kimberly Hall Reason Greenhouse Staff Was Necessary: Exposure, assistance in repair, teaching Fluid Replacement, Intraop: 700 EBL in mLs: 10 Condition: Good Free Text/Narrative:: DICTATION 476248 CPT CODE 48903
[2019-02-11] MEDS: fentaNYL 100 MCG/2 ML SDV IVPUSH PRN ×2 (09:05→09:10)
[2019-02-11] MEDS ORDERED: Haloperidol Lactate 5 MG/ML SDV IM ONE (09:51)
[2019-02-11] MEDS ORDERED: Haloperidol Lactate 5 MG/ML SDV ONE (10:05)
--- NOTE | 2019-02-11 11:57 | PCM48HPAN ---
Post Anesthesia Note - EVALUATION WITHIN 48HRS OF ANESTHETIC Vital Signs in Normal Range: Yes Patient Participated in Evaluation: Yes Respiratory Function Stable: Yes Airway Patent: Yes Cardiovascular Function Stable: Yes Hydration Status Stable: Yes Pain Control Satisfactory: Yes Nausea and Vomiting Control Satisfactory: Yes Mental Status Recovered: Yes Resp Rate: 14
--- NOTE | 2019-02-11 12:07 | OR ---
SURGEON: Daniel Villa M.D. DATE OF PROCEDURE: 02/11/2019 OPERATION PERFORMED: Repair of incarcerated ventral hernia. PRIMARY SURGEON: Daneil Villa M.D. BEHAVIORAL THERAPY COORDINATOR: Chorus Dancer: LOIDA Coughlin, assistant manager airside operations student. ANESTHESIA: General LMA. ASA CLASSIFICATION: II. PREOPERATIVE DIAGNOSIS: Incarcerated ventral hernia. POSTOPERATIVE DIAGNOSIS: Incarcerated ventral hernia. ESTIMATED BLOOD LOSS: 10 mL. INTRAOPERATIVE FLUID REPLACEMENT: 700 mL of crystalloid. DESCRIPTION OF PROCEDURE: The patient was taken to the operating room and placed on the operating table in the supine position. Time-out was called for appropriate identification, patient, and procedure. Thigh-high TEDs and sequential compression boots were placed. Following satisfactory attainment of general anesthesia with placement of an LMA, the abdomen was prepped with DuraPrep solution, and sterile drapes were applied. The surgical site had been marked prior to the patient entering the operating room. The patient has had a prior abdominal piercing and it was necessary to remove that portion of the skin, which was just above the umbilicus. The skin was first infiltrated with 10 mL of 0.5% Marcaine solution. Ellipse of the piercing site was carried out and dissection carried into the subcutaneous tissue. There was a rather large hernia sac that was circumferentially dissected using electrocautery. Dissection was carried down to the fascial defect and it was obvious that we were not going to be able to reduce the hernia sac. Therefore, using electrocautery, the preperitoneal fat and hernia sac were removed. Once that was accomplished, the defect and fascia margins were easily circumscribed. The defect was 12 mm. This was repaired with multiple interrupted 0 Ethibond sutures. All sutures were placed under direct vision and held with hemostats. Once all sutures have been placed and secured, the patient was given a Valsalva maneuver to 30 cm of water. The repair was solid. The wound was then irrigated with sterile saline solution. Subcutaneous tissue was reapproximated with 3-0 Vicryl. The skin edges were reapproximated with subcuticular 4-0 Monocryl, reinforced with half-inch Steri- Strips. Sterile Tegaderm pad was placed as a dressing. Sponge, needle, and instrument counts were all correct. The patient tolerated the procedure well. Following emergence from anesthesia and extubation, she was taken to recovery room in stable condition. ANDMONIQUE / LIZETH /[id number]
== END 2019-02-11 12:10 | disposition home or self-care (01) ==
LOC: MW.SDS 06:47
PROVIDERS: ATTEND Surgery
DX: K43.6 Other and unspecified ventral hernia with obstruction, without gangrene (principal); K25.9 Gastric ulcer, unspecified as acute or chronic, without hemorrhage or perforation; G89.4 Chronic pain syndrome; M48.00 Spinal stenosis, site unspecified; M51.36 Other intervertebral disc degeneration, lumbar region; M47.817 Spondylosis without myelopathy or radiculopathy, lumbosacral region; M54.5 Low back pain; Q76.49 Other congenital malformations of spine, not associated with scoliosis; Z88.0 Allergy status to penicillin; Z79.899 Other long term (current) drug therapy
CPT/HCPCS: 49561; 81025; A4217; A9270; J0131; J0744; J1100; J1630; J2250; J2405; J2704; J3010; J3490; J7120; 88302; J0690

== ENCOUNTER 2020-04-13 19:57 | Emergency (ER) | payer OTHER, BC ==
[2020-04-13] MEDS ORDERED: cefTRIAXone 1 GM in Lidocaine 1% 4 ML IM ONE (20:25)
--- NOTE | 2020-04-13 20:42 | EDM.PDOC ---
ED HPI GENERAL MEDICAL PROBLEM - General Chief Complaint: ENT Problem Stated Complaint: EAR INFECTION Time Seen by Provider: 04/13/20 20:17 - History of Present Illness INITIAL COMMENTS - FREE TEXT/NARRATIVE: History of present illness: [] She has an ear infection. 4 days ago she began to have pain in both ears. She was seen at a walk-in clinic 3 days ago. She was started on doxycycline. Her left ear got worse. They change her to Keflex. She has had a serious reaction to Augmentin in the past. She has responded well to Rocephin 1 area infections were under control. Patient has no other symptoms. The right ear somewhat better in the left ear continues to hurt. Nothing makes it better or worse. Review of systems: As per history of present illness and below otherwise all systems reviewed and negative. Past medical history: As per history of present illness and as reviewed below otherwise noncontributory. Surgical history: As per history of present illness and as reviewed below otherwise noncontributory. Social history: No reported history of drug or alcohol abuse. Family history: As per history of present illness and as reviewed below otherwise noncontributory. Physical exam: Constitutional - well developed, well-nourished and in no acute distress HEENT - normocephalic, no evidence of trauma - external nose and mouth normal - no mass in neck and no JVD - mucosae moist. TM on the right is normal canal is normal and the left TM is red and partially bulging. The patient has no mastoid tenderness. She has no trismus. There are no nodes under the neck. EYES - full EOM, PERRL, no icterus - no evidence of inflammation, injection, or drainage Respiratory - no respiratory distress, equal bilateral expansion, lungs clear to auscultation and no abnormal lung sounds Cardiovascular - Regular Rhythm with S1 and S2 appreciated and no murmur, gallop or rub. Peripheral pulses symmetrically normal in all four extremities GI - abdomen soft without distension or organomegaly - normal bowel sounds - no guard or rebound Musculoskeletal no gross deformity of long bones or joints - no tenderness, swelling or edema Neurologic - Alert and oriented times four - CN II-XII grossly intact - motor sensory and coordination symmetrically normal Psychiatric - appropriate mood and affect with normal thought content Hematologic - No petechiae or purpura - mucosa appropriate color and sclera not pale - normal nail bed color and refill Integument - no rash or evidence of trauma - normal turgor Diagnostics: [] Therapeutics: [] Impression: [] Plan: [] Definitive disposition and diagnosis as appropriate pending reevaluation and review of above. - Related Data Allergies Allergy/AdvReac Type Severity Reaction Status Date / Time amoxicillin [From Augmentin] Allergy Anaphylactic Verified 04/13/20 20:20 Shock clavulanic acid Allergy Anaphylactic Verified 04/13/20 20:20 [From Augmentin] Shock Home Meds: Home Meds Ibuprofen [Motrin] 3 - 4 tab PO ASDIRECTED PRN 02/08/19 [History] Multivit with Calcium,Iron,Min [One Daily Women's] 1 tab PO DAILY 02/08/19 [History] Sucralfate [Carafate] 1 gm PO DAILY PRN 02/11/19 [History] Sulfamethoxazole/Trimethoprim [Bactrim Ds Tablet] 1 each PO BID #20 tablet 04/13/20 [Rx] Past Medical History - Past Health History Medical/Surgical History: Denies Medical/Surgical History HEENT History: Reports: None Cardiovascular History: Reports: None Respiratory History: Reports: None Gastrointestinal History: Reports: None Other Gastrointestinal History: ulcers Genitourinary History: Reports: None 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: Musculoskeletal History: Reports: Other (See Below) Other Musculoskeletal History: spinal stenosis - several epidural steroid injection in the past Neurological History: Reports: None Psychiatric History: Reports: None Endocrine/Metabolic History: Reports: None Hematologic History: Reports: None Immunologic History: Reports: None Oncologic (Cancer) History: Reports: None Dermatologic History: Reports: None - Infectious Disease History Infectious Disease History: Reports: Chicken Pox - Past Surgical History Head Surgeries/Procedures: Reports: None HEENT Surgical History: Reports: Adenoidectomy, Myringotomy w Tube(s), Tonsillectomy Cardiovascular Surgical History: Reports: None Respiratory Surgical History: Reports: None GI Surgical History: Reports: None, Hernia Repair/Other Female Surgical History: Reports: None Endocrine Surgical History: Reports: None Neurological Surgical History: Reports: None Musculoskeletal Surgical History: Reports: None Oncologic Surgical History: Reports: None Dermatological Surgical History: Reports: None Social & Family History - Family History Family Medical History: Noncontributory - Tobacco Use Smoking Status *Q: Never Smoker - Caffeine Use Caffeine Use: Reports: Coffee Caffeine Use Comment: Rarely use but once in a while - Recreational Drug Use Recreational Drug Use: No ED ROS GENERAL - Review of Systems Review Of Systems: Comprehensive ROS is negative, except as noted in HPI. ED EXAM, GENERAL - Physical Exam Exam: See Below Free Text/Narrative:: Sickle exam as under HPI Course - Vital Signs Last Recorded V/S: Last Vital Signs Temp 97.3 F 04/13/20 20:17 Pulse 84 04/13/20 20:17 Resp 16 04/13/20 20:17 BP 115/75 04/13/20 20:17 Pulse Ox 98 04/13/20 20:17 - Orders/Labs/Meds Meds: Medications Discontinued Medications Generic Name Dose Route Start Last Admin Trade Name Roberto PRN Reason Stop Dose Admin Ceftriaxone Sodium 1 gm/ 4 mls @ 4 mls/sec 04/13/20 20:25 Lidocaine HCl IM 04/13/20 20:26 ONETIME ONE Departure - Departure Time of Disposition: 20:37 Disposition: Home, Self-Care 01 Clinical Impression: Left otitis media, Otitis media - Discharge Information Instructions: Otitis Media, Adult, [id number] Referrals: Hunter Hassan MD [Primary Care Provider] - Forms: ED Department Discharge Additional Instructions: The following information is given to patients seen in the emergency department who are being discharged to home. This information is to outline your options for follow-up care. We provide all patients seen in our emergency department with a follow-up referral. The need for follow-up, as well as the timing and circumstances, are variable depending upon the specifics of your emergency department visit. If you don't have a primary care physician on staff, we will provide you with a referral. We always advise you to contact your personal physician following an emergency department visit to inform them of the circumstance of the visit and for follow-up with them and/or the need for any referrals to a consulting specialist. The emergency department will also refer you to a specialist when appropriate. This referral assures that you have the opportunity for follow-up care with a specialist. All of these measure are taken in an effort to provide you with optimal care, which includes your follow-up. Under all circumstances we always encourage you to contact your private physician who remains a resource for coordinating your care. When calling for follow-up care, please make the office aware that this follow-up is from your recent emergency room visit. If for any reason you are refused follow-up, please contact the [facility] Emergency Department at and asked to speak to the emergency department charge nurse. Unfortunately we do not have ENT in this community available. Please contact primary care or your doctor for referral. There is ENT availability in [facility], Dr. Zoila Esposito [facility] - Primary Care [address] [place] [id number] [id number] Sepsis Event Note (ED) - Evaluation Sepsis Screening Result: No Definite Risk - Focused Exam Vital Signs: Vital Signs Temp Pulse Resp BP Pulse Ox 04/13/20 20:17 97.3 F 84 16 115/75 98
== END 2020-04-13 21:00 | disposition home or self-care (01) ==
LOC: MW.ED 19:57
DX: H66.92 Otitis media, unspecified, left ear (principal); Z88.1 Allergy status to other antibiotic agents
CPT/HCPCS: 96374; 99282; J0696; J2001

== ENCOUNTER 2020-06-13 08:16 | Emergency (ER) | payer OTHER, BC ==
--- NOTE | 2020-06-13 09:07 | EDM.PDOC ---
ED HPI GENERAL MEDICAL PROBLEM - General Chief Complaint: Back Pain or Injury Stated Complaint: LOWER BACK INJURY Time Seen by Provider: 06/13/20 08:16 Source of Information: Reports: Patient History Limitations: Reports: No Limitations - History of Present Illness INITIAL COMMENTS - FREE TEXT/NARRATIVE: 24-year-old female with no pertinent past medical history presenting with back pain. She was bending down to sisal picker her dog this morning and felt a pop in her lower back along with severe onset pain. Middle Back Pain Score (Numeric/FACES): 10 - Related Data Allergies Allergy/AdvReac Type Severity Reaction Status Date / Time amoxicillin [From Augmentin] Allergy Anaphylactic Verified 06/13/20 08:26 Shock clavulanic acid Allergy Anaphylactic Verified 06/13/20 08:26 [From Augmentin] Shock Home Meds: Home Meds Ibuprofen [Motrin] 3 - 4 tab PO ASDIRECTED PRN 02/08/19 [History] Multivit with Calcium,Iron,Min [One Daily Women's] 1 tab PO DAILY 02/08/19 [History] Sucralfate [Carafate] 1 gm PO DAILY PRN 02/11/19 [History] Past Medical History - Past Health History Medical/Surgical History: Denies Medical/Surgical History HEENT History: Reports: None Cardiovascular History: Reports: None Respiratory History: Reports: None Gastrointestinal History: Reports: None Other Gastrointestinal History: ulcers Genitourinary History: Reports: None DEPUTY HEAD History: Reports: Musculoskeletal History: Reports: Other (See Below) Other Musculoskeletal History: spinal stenosis - several epidural steroid injection in the past Neurological History: Reports: None Psychiatric History: Reports: None Endocrine/Metabolic History: Reports: None Hematologic History: Reports: None Immunologic History: Reports: None Oncologic (Cancer) History: Reports: None Dermatologic History: Reports: None - Infectious Disease History Infectious Disease History: Reports: None - Past Surgical History Head Surgeries/Procedures: Reports: None HEENT Surgical History: Reports: Adenoidectomy, Myringotomy w Tube(s), Tonsillectomy Cardiovascular Surgical History: Reports: None Respiratory Surgical History: Reports: None GI Surgical History: Reports: None, Hernia Repair/Other Female Surgical History: Reports: None Endocrine Surgical History: Reports: None Neurological Surgical History: Reports: None Musculoskeletal Surgical History: Reports: None Oncologic Surgical History: Reports: None Dermatological Surgical History: Reports: None Social & Family History - Family History Family Medical History: Noncontributory - Tobacco Use Smoking Status *Q: Never Smoker Second Hand Smoke Exposure: No - Caffeine Use Caffeine Use: Reports: Coffee, Energy Drinks, Soda, Tea Caffeine Use Comment: Rarely use but once in a while - Recreational Drug Use Recreational Drug Use: No Course - Vital Signs Last Recorded V/S: Last Vital Signs Temp 36.9 C 06/13/20 08:27 Pulse 80 06/13/20 08:27 Resp 15 06/13/20 08:27 BP 122/65 06/13/20 08:27 Pulse Ox 100 06/13/20 08:27 Departure - Discharge Information Referrals: Hunter Hassan MD [Primary Care Provider] - Sepsis Event Note (ED) - Evaluation Sepsis Screening Result: No Definite Risk - Focused Exam Vital Signs: Vital Signs Temp Pulse Resp BP Pulse Ox 06/13/20 08:27 36.9 C 80 15 122/65 100
[2020-06-13] MEDS ORDERED: Lidocaine 5% 700 MG Patch TOP ONE (09:19)
[2020-06-13] MEDS ORDERED: Ibuprofen 400 MG Tab PO ONE (09:19)
[2020-06-13] MEDS ORDERED: oxyCODONE 5 MG Tab PO ONE (09:19)
[2020-06-13] MEDS ORDERED: Acetaminophen 500 MG Tab PO ONE (09:19)
--- NOTE | 2020-06-13 09:33 | EDM.PDOC ---
ED HPI GENERAL MEDICAL PROBLEM - General Chief Complaint: Back Pain or Injury Stated Complaint: LOWER BACK INJURY Time Seen by Provider: 06/13/20 08:16 Source of Information: Reports: Patient, Old Records History Limitations: Reports: No Limitations - History of Present Illness INITIAL COMMENTS - FREE TEXT/NARRATIVE: 24-year-old female with no past medical history presenting with upper back pain. 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 No history of prior herniated disc. No self treatment prior to arrival. Denies any blunt trauma to the back, extremity numbness or weakness, gait difficulties, bowel or bladder retention or incontinence, perineal anesthesia, history of immunosuppression or cancer, recent steroid use, fever, or history of IV drug use. Past medical history: Reviewed, no additional pertinent history. Surgical history: Reviewed in system, no additional pertinent history. Social history: Reviewed in system, no additional pertinent history. Family history: Reviewed in system, no additional pertinent history. PHYSICAL EXAM Vital signs reviewed. Nursing notes reviewed. Constitutional: Awake, alert, non-distressed. Head: Normocephalic, atraumatic. Eyes: EOMI, conjunctiva normal, no discharge, no scleral icterus. Ears, Nose, Throat: External ears and nose normal, moist oral mucosa. Cardiovascular: 2+ radial pulse, 2+ bilateral DP pulses, capillary refill less than 2 seconds. Pulmonary: normal work of breathing, no accessory muscle use. Abdomen/GI: Soft, nontender, nondistended, no guarding or rigidity, no masses. Musculoskeletal: No deformities. Moderate tenderness to the bilateral paraspinal muscles adjacent to the lower thoracic spine (T8-T10 region). Integumentary: Appropriate color for ethnicity, warm, dry, no pallor or jaundi ce, no rash. Neurologic: Alert, answering questions appropriately, normal speech, no facial droop, moving all extremities well. 5/5 strength and sensation intact to light touch to all 4 extremities. Upgoing EHLs bilaterally. Able to sit, stand, and ambulate without assistance. Able to walk on heels and tiptoes. Antalgic, but symmetric gait. Psychiatric: Appropriate mood and affect, normal thought process. Middle Back Pain Score (Numeric/FACES): 10 - Related Data Allergies Allergy/AdvReac Type Severity Reaction Status Date / Time amoxicillin [From Augmentin] Allergy Anaphylactic Verified 06/13/20 08:26 Shock clavulanic acid Allergy Anaphylactic Verified 06/13/20 08:26 [From Augmentin] Shock Home Meds: Home Meds Ibuprofen [Motrin] 3 - 4 tab PO ASDIRECTED PRN 02/08/19 [History] Multivit with Calcium,Iron,Min [One Daily Women's] 1 tab PO DAILY 02/08/19 [History] Sucralfate [Carafate] 1 gm PO DAILY PRN 02/11/19 [History] Acetaminophen [Acetaminophen Extra Strength] 500 - 1,000 mg PO Q6H PRN #30 tablet 06/13/20 [Rx] Cyclobenzaprine [Flexeril] 5 - 10 mg PO TID PRN #12 tab 06/13/20 [Rx] Ibuprofen 400 mg PO Q6H PRN #30 tablet 06/13/20 [Rx] Past Medical History - Past Health History Medical/Surgical History: Denies Medical/Surgical History HEENT History: Reports: None Cardiovascular History: Reports: None Respiratory History: Reports: None Gastrointestinal History: Reports: None Other Gastrointestinal History: ulcers Genitourinary History: Reports: None [employer] History: Reports: Musculoskeletal History: Reports: Other (See Below) Other Musculoskeletal History: spinal stenosis - several epidural steroid injection in the past Neurological History: Reports: None Psychiatric History: Reports: None Endocrine/Metabolic History: Reports: None Hematologic History: Reports: None Immunologic History: Reports: None Oncologic (Cancer) History: Reports: None Dermatologic History: Reports: None - Infectious Disease History Infectious Disease History: Reports: None - Past Surgical History Head Surgeries/Procedures: Reports: None HEENT Surgical History: Reports: Adenoidectomy, Myringotomy w Tube(s), Tonsillectomy Cardiovascular Surgical History: Reports: None Respiratory Surgical History: Reports: None GI Surgical History: Reports: None, Hernia Repair/Other Female Surgical History: Reports: None Endocrine Surgical History: Reports: None Neurological Surgical History: Reports: None Musculoskeletal Surgical History: Reports: None Oncologic Surgical History: Reports: None Dermatological Surgical History: Reports: None Social & Family History - Family History Family Medical History: Noncontributory - Tobacco Use Smoking Status *Q: Never Smoker Second Hand Smoke Exposure: No - Caffeine Use Caffeine Use: Reports: Coffee, Energy Drinks, Soda, Tea Caffeine Use Comment: Rarely use but once in a while - Recreational Drug Use Recreational Drug Use: No ED ROS GENERAL - Review of Systems Review Of Systems: See Below ED EXAM, UPPER BACK/NECK PAIN - Physical Exam Exam: See Below Course - Vital Signs Text/Narrative:: 24-year-old female presenting with severe bilateral midline thoracic back pain. Patient hemodynamically stable, afebrile, well-appearing, looks nontoxic. Differential diagnosis includes but is not limited to: Muscle strain/sprain, less likely herniated disc, less likely vertebral fracture, less likely spinal epidural abscess, much less likely thoracic aortic dissection. Neurovascularly intact in the bilateral lower extremities. Low suspicion for disc herniation or spinal cord compression based on physical examination. No red flag symptoms in the HPI to warrant emergent MRI. Full and normal strength in all 4 extremities. Gait appears symmetric. Suspect that this is muscle strain given the exam and history. 0932: We discussed obtaining imaging immediately versus symptomatic control with pain medications and reassessment, we will plan for initially just treated with medications and seeing how she does. Ordered acetaminophen, ibuprofen, oxycodone, lidocaine patch. 1015: I reevaluated the patient. She is feeling much better. The pain is isolated to the bilateral paraspinal muscles around the lower thoracic spine. I have a low suspicion for involvement of the thoracic vertebrae or the spinal cord itself. She remains neurologically intact in all extremities. I am comfortable discharging her home with symptomatic treatment for thoracic muscle strain. Will prescribe a short course of cyclobenzaprine, acetaminophen, ibuprofen. Encouraged heating pad use along with a heating pad. Patient has care established with a physical therapy clinic and encouraged her to be evalua celeste there. We will also have her follow-up with her primary medicine clinic in the next 1 to 2 weeks for reevaluation if she is not doing better. Counseled about potential side effects of cyclobenzaprine including sedation. Plan: Patient is stable to discharge home with outpatient primary care clinic follow-up. Strict emergency department return precautions were provided, patient indicated understanding. All questions were answered prior to departure. Discharged in good condition. Last Recorded V/S: Last Vital Signs Temp 36.9 C 06/13/20 08:27 Pulse 80 06/13/20 08:27 Resp 15 06/13/20 08:27 BP 122/65 06/13/20 08:27 Pulse Ox 100 06/13/20 08:27 - Orders/Labs/Meds Meds: Medications Discontinued Medications Generic Name Dose Route Start Last Admin Trade Name Freq PRN Reason Stop Dose Admin Acetaminophen 1,000 mg 06/13/20 09:19 06/13/20 09:42 Tylenol Extra Strength PO 06/13/20 09:20 1,000 mg ONETIME ONE Administration Ibuprofen 400 mg 06/13/20 09:19 06/13/20 09:42 Motrin PO 06/13/20 09:20 400 mg ONETIME ONE Administration Lidocaine 700 mg 06/13/20 09:19 06/13/20 09:42 Lidoderm 5% TOP 06/13/20 09:20 700 mg ONETIME ONE Administration Oxycodone HCl 10 mg 06/13/20 09:19 06/13/20 09:42 Oxycodone PO 06/13/20 09:20 10 mg ONETIME ONE Administration Departure - Departure Time of Disposition: 10:29 Disposition: Home, Self-Care 01 Condition: Good Clinical Impression: Upper back strain Qualifiers: Encounter type: initial encounter Qualified Code(s): S29.012A - Strain of muscle and tendon of back wall of thorax, initial encounter - Discharge Information *PRESCRIPTION DRUG MONITORING PROGRAM REVIEWED*: Not Applicable *COPY OF PRESCRIPTION DRUG MONITORING REPORT IN PATIENT NICOLE: Not Applicable Prescriptions: Acetaminophen [Acetaminophen Extra Strength] 500 - 1,000 mg PO Q6H PRN #30 tablet PRN Reason: Pain (Mild 1-3) Cyclobenzaprine [Flexeril] 5 - 10 mg PO TID PRN #12 tab PRN Reason: Pain (Severe 7-10) Ibuprofen 400 mg PO Q6H PRN #30 tablet PRN Reason: Pain (Mild 1-3) Instructions: Muscle Strain, [id number] Referrals: Hunter Hassan MD [Primary Care Provider] - 1 Week (For follow-up of symptoms, as needed.) Forms: ED Department Discharge Additional Instructions: You were seen in the emergency department for upper back pain. I believe that you have strained muscles in your upper back. Treatment is symptomatic, including acetaminophen, ibuprofen, lidocaine patches, and a heating pad. I did prescribe a short course of cyclobenzaprine, a muscle relaxer. You should not drive, drink alcohol, take any drugs, etc. while using cyclobenzaprine. I would encourage you to follow-up with your primary medicine clinic in the next 1 to 2 weeks for reevaluation if you are not doing better. I also recommend physical therapy. Warning signs to come back to the ER include worsening pain, fever of 100.4 higher, weakness or numbness of your arms or legs, or any other new or concerning symptoms. Please return the emergency department immediately if your symptoms worsen or if you feel worse. Thank you for choosing the [facility] emergency department in [place] for your medical needs today. It was a pleasure caring for you. The following information is given to patients seen in the emergency department who are being discharged. This information is to outline your options for follow-up care. We provide all patients seen in our emergency department with a follow-up referral. The need for follow-up, as well as the timing and circumstances, are variable depending upon the specifics of your emergency department visit. If you don't have a primary care physician on staff, we will provide you with a referral. We always advise you to contact your personal physician following an emergency department visit to inform them of the circumstance of the visit and for follow-up with them and/or the need for any referrals to a consulting specialist. The emergency department will also refer you to a specialist when appropriate. This referral assures that you have the opportunity for follow-up care with a specialist. All of these measure are taken in an effort to provide you with optimal care, which includes your follow-up. Under all circumstances we always encourage you to contact your private physician who remains a resource for coordinating your care. When calling for follow-up care, please make the office aware that this follow-up is from your recent emergency room visit. If for any reason you are refused follow-up, please contact the [facility] Emergency Department at and asked to speak to the emergency department charge nurse. If you do not have a primary care physician that is caring for you, you can contact these clinics below to set up an appointment to establish care: [facility] [address] [place] [id number] [facility] [address] [place] [id number] Sepsis Event Note (ED) - Evaluation Sepsis Screening Result: No Definite Risk - Focused Exam Vital Signs: Vital Signs Temp Pulse Resp BP Pulse Ox 06/13/20 08:27 36.9 C 80 15 122/65 100
== END 2020-06-13 10:39 | disposition home or self-care (01) ==
LOC: MW.ED 08:16
DX: S29.012A Strain of muscle and tendon of back wall of thorax, initial encounter (principal); Z88.1 Allergy status to other antibiotic agents; Z79.899 Other long term (current) drug therapy; X50.1XXA Overexertion from prolonged static or awkward postures, initial encounter
CPT/HCPCS: 99283; A9270

== ENCOUNTER 2024-11-20 05:59 | Emergency (ER) | payer BC, OTHER ==
[2024-11-20] MEDS: Acetaminophen 500 MG Tab PO ONE (06:16)
== END 2024-11-20 07:03 | disposition home or self-care (01) ==
LOC: MW.ED 05:59
DX: J10.1 Influenza due to other identified influenza virus with other respiratory manifestations (principal); Z88.1 Allergy status to other antibiotic agents; Z88.8 Allergy status to other drugs, medicaments and biological substances; Z79.899 Other long term (current) drug therapy
CPT/HCPCS: 87428; 99284; A9270

== ENCOUNTER 2024-11-20 15:13 | Emergency (ER) | payer BC ==
[2024-11-20] MEDS: Ondansetron 4 MG/2 ML SDV IVPUSH ONE (15:47)
[2024-11-20] MEDS: Sodium Chloride 0.9% 1,000 ML IV STA ×2 (15:47→17:29)
[2024-11-20 16:07] LABS: BASOPHILS ABSOLUTE AUTO 0.03 K/uL (0.00-0.20); BASOPHILS PERCENT AUTO 0.2 % (0.0-1.0); EOSINOPHILS ABSOLUTE AUTO 0.01 K/uL (0.00-0.45); EOSINOPHILS PERCENT AUTO 0.1 % (0.0-6.0); HEMATOCRIT 41.9 % (37.0-47.0); HEMOGLOBIN 14.8 g/dL (12.0-16.0); IMMATURE GRAN ABSOLUTE AUTO 0.04 K/uL (0.00-0.05); IMMATURE GRAN PERCENT AUTO 0.3 % (0.0-0.4); LYMPHOCYTES ABSOLUTE AUTO 0.52 K/uL (1.00-4.80); MEAN CORPUSCULAR HEMOGLOBIN 32.2 pg (28.0-32.0); MEAN CORPUSCULAR HGB CONC 35.3 g/dL (32.0-36.0); MEAN CORPUSCULAR VOLUME 91.3 fL (83.0-99.0); MONOCYTES PERCENT AUTO 8.4 % (0.0-8.0); NEUTROPHILS ABSOLUTE AUTO 11.39 K/uL (1.80-7.70); PLATELET COUNT,PLT 227 K/uL (150-400); RED BLOOD CELL COUNT 4.59 M/uL (4.10-5.30); WHITE BLOOD CELL COUNT,WBC 13.09 K/uL (3.9-11.3)
[2024-11-20 16:29] LABS: A/G RATIO 1.2 (0.9-1.6); ALANINE AMINOTRANSFERASE,ALT 25 IU/L (14-63); ALBUMIN 4.2 g/dL (3.4-5.0); ALKALINE PHOSPHATASE 57 U/L (46-116); ASPARTATE AMNIOTRANSFERASE,AST 15 IU/L (15-37); BILIRUBIN TOTAL 0.5 mg/dL (0.2-1.0); BLOOD UREA NITROGEN,BUN 10 mg/dL (7.0-18.0); CALCIUM 9.1 mg/dL (8.5-10.1); CARBON DIOXIDE,CO2 23.7 mmol/L (21.0-32.0); CHLORIDE,CL 101 mmol/L (98-107); CREATININE 0.9 mg/dL (0.6-1.0); GLUCOSE RANDOM 119 mg/dL (74-106); LIPASE 17 U/L (16-77); MAGNESIUM 1.9 mg/dL (1.8-2.4); POTASSIUM,K 3.5 mmol/L (3.5-5.1); PROTEIN TOTAL,TP 7.7 g/dL (6.4-8.2); SODIUM,NA 139 mmol/L (136-145)
[2024-11-20 16:33] LABS: ESTIMATED GFR 90 mL/min (>60)
[2024-11-20] MEDS: Ketorolac 30 MG/ML SDV IVPUSH ONE (16:36)
[2024-11-20] MEDS: Sodium Chloride 0.9% 10 ML Syringe FLUSH PRN (16:39)
[2024-11-20] MEDS: Sodium Chloride 0.9% 2.5 ML Syringe FLUSH PRN (16:40)
[2024-11-20] MEDS: Ondansetron 4 MG Tab.DIS PO ONE (18:55)
== END 2024-11-20 19:03 | disposition home or self-care (01) ==
LOC: MW.ED 15:13
DX: J10.1 Influenza due to other identified influenza virus with other respiratory manifestations (principal); Z75.8 Other problems related to medical facilities and other health care; Z88.0 Allergy status to penicillin
CPT/HCPCS: 36415; 80053; 83690; 83735; 84703; 85025; 96361; 96374; 96375; 99284; A9270; J1885; J2405; J7030